=== PATIENT | male | born 1980 | race Two or more races ===

== ENCOUNTER → 2016-12-20 | Outpatient (CLI) | payer OTHER ==
--- NOTE | 2016-12-20 14:30 | KCIC ---
2 view left wrist study HISTORY: Left wrist pain for one week. Swelling. No known injury. FINDINGS: No acute fracture or dislocation or osteolytic process is seen. Alignment is normal. IMPRESSION: No acute fracture. Electronically signed by: Jesús Matta MD (12/20/2016 2:27 PM) [place] [id number]
== END | disposition home or self-care (01) ==
LOC: KCIC 10:39
PROVIDERS: ATTEND Nurse Practitioner Family
DX: M79.642 Pain in left hand (principal); M25.532 Pain in left wrist
CPT/HCPCS: 73100

== ENCOUNTER → 2018-12-10 | Outpatient (CLI) | payer OTHER, MEDICAID ==
[~2018-12-10] MED LIST: CONTRAST GIVEN. MC PRN; IOHEXOL 240 MG/ML 50ML VIAL. PO ONE; IOHEXOL 300 MG/ML 100ML VIAL. IV ONE
--- NOTE | 2018-12-10 14:52 | RAD ---
Axial CT of the abdomen and pelvis were obtained after the administration of 75 cc Isovue 370. Oral contrast was also administered. Coronal and sagittal reformats are also available. Exposure: One or more of the following individualized dose reduction techniques were utilized for this examination: 1. Automated exposure control 2. Adjustment of the mA and/or kV according to patient size 3. Use of iterative reconstruction technique Indication: Left lower quadrant abdominal pain.. Comparison: None. Findings: The heart is not enlarged. The lung bases are clear. Liver is hypodense relative to the spleen. The adrenals, spleen, kidneys, gallbladder and pancreas are unremarkable in appearance. Stomach, small and large bowel are nondistended. There is a focal area of bowel wall thickening with mesenteric induration and a trace amount of free fluid in the left paracolic gutter suggestive of focal mild diverticulitis. No free air or fluid. No radiologically significant retroperitoneal or mesenteric lymphadenopathy. Patient status post hysterectomy. Abdominal aorta is nonaneurysmal. Portal, superior mesenteric and splenic veins are normal. Bony structures are unremarkable in appearance. Appendix is visualized and is unremarkable. IMPRESSION: 1. Very mild diverticulitis in the descending colon without evidence of free air or abscess identified. 2. Hepatic steatosis. Electronically signed by: Jose Rafael Post MD (12/10/2018 2:50 PM) [id number]
== END | disposition home or self-care (01) ==
LOC: CT 13:19
PROVIDERS: ATTEND Internal Medicine
DX: K57.92 Diverticulitis of intestine, part unspecified, without perforation or abscess without bleeding (principal); K76.0 Fatty (change of) liver, not elsewhere classified
CPT/HCPCS: 74177; Q9966; Q9967